=== PATIENT | female | born 1985 ===

== ENCOUNTER 2023-05-13 11:18 | Observation (INO) | payer MEDICAID ==
[2023-05-13] VITALS (38 sets, daily range): BP systolic 127–197; BP diastolic 66–108
[~2023-05-13] VITALS: Ht 165.1 cm; Wt 97.2 kg
[2023-05-13 11:36] LABS: BILIRUBIN,URINE NEGATIVE (NEGATIVE); CLARITY,URINE CLEAR; COLOR,URINE YELLOW; GLUCOSE, URINE (UA) NEGATIVE (NEGATIVE); KETONES,URINE NEGATIVE (NEGATIVE); LEUKOCYTE ESTERASE ,URINE 2+ (NEGATIVE); NITRITE,URINE NEGATIVE (NEGATIVE); PH,URINE 8.5 (5-9); PROTEIN,URINE NEGATIVE (NEGATIVE)
[2023-05-13 11:52] LABS: RBC,URINE RARE /HPF
[2023-05-13 11:53] LABS: BACTERIA,URINE MODERATE /HPF
[2023-05-13 12:23] LABS: AMPHETAMINE SCREEN, URINE NEGATIVE (NEGATIVE); BARBITURATE SCREEN URINE NEGATIVE (NEGATIVE); BENZODIAZEPINES SCREEN URINE NEGATIVE (NEGATIVE); CANNABINOID SCREEN, URINE POSITIVE (NEGATIVE); COCAINE SCREEN URINE NEGATIVE (NEGATIVE); METHADONE STAT NEGATIVE (NEGATIVE); OPIATE SCREEN URINE NEGATIVE (NEGATIVE); OXYCODONE STAT NEGATIVE (NEGATIVE); PROPOXYPHENE STAT NEGATIVE (NEGATIVE); TRICYCLIC ANTIDEPRESSANTS SCRE NEGATIVE (NEGATIVE)
[2023-05-13 12:53] LABS: BASOPHILS # (AUTO) 0.1 10^3/uL (0.0-0.1); BASOPHILS % (AUTO) 1 % (0-10); EOSINOPHILS # (AUTO) 0.2 10^3/uL (0.0-0.3); EOSINOPHILS % (AUTO) 2 % (0-10); HEMATOCRIT 33 % (35-52); HEMOGLOBIN 11.3 g/dL (11.5-16.0); LYMPHOCYTES % (AUTO) 22 % (12-44); MEAN CORPUSCULAR HEMOGLOBIN 32 pg (25-34); MEAN CORPUSCULAR HGB CONC 34 g/dL (32-36); MEAN CORPUSCULAR VOLUME 93 fL (80-99); MEAN PLATELET VOLUME 11.6 fL (9.0-12.2); MONOCYTES % (AUTO) 12 % (0-12); NEUTROPHILS # (AUTO) 5.5 10^3/uL (1.8-7.8); NEUTROPHILS % (AUTO) 62 % (42-75); PLATELET COUNT 221 10^3/uL (130-400); WHITE BLOOD COUNT 8.8 10^3/uL (4.3-11.0)
[2023-05-13 12:59] LABS: ALBUMIN 3.3 GM/DL (3.2-4.5); POTASSIUM 3.7 MMOL/L (3.6-5.0)
[2023-05-13 13:01] LABS: CALCIUM 8.5 MG/DL (8.5-10.1)
[2023-05-13 13:02] LABS: TOTAL PROTEIN 6.2 GM/DL (6.4-8.2)
[2023-05-13 13:04] LABS: BILIRUBIN,TOTAL 0.3 MG/DL (0.1-1.0)
[2023-05-13 13:05] LABS: CREATININE SERUM 0.52 MG/DL (0.60-1.30)
[2023-05-13 13:09] LABS: URIC ACID 4.3 MG/DL (2.6-7.2)
[2023-05-13] MEDS ORDERED: LABETALOL 200 MG (NORMODYNE) TAB PO NR (14:30)
[2023-05-13] MEDS: NS IV 1000 ML 1,000 ML IV SCH ×2 (15:03→15:59)
--- NOTE | 2023-05-13 17:38 | Diagnostic Imaging Report ---
HISTORY: Pre-term contractions, , 32 weeks 6 days. COMPARISON: None. TECHNIQUE: Transabdominal ultrasound of the gravid uterus. FINDINGS: There is a single live intrauterine gestation in cephalic presentation. The placenta is anterior with no evidence of previa visible. The heart rate measures 144 BPM. The amniotic fluid index measures 11.1 cm. The cervix is measured at 6 cm with no funneling or endocervical fluid seen. Anatomic survey is not performed at this time. IMPRESSION: 1. Single live intrauterine gestation with normal heart rate and amniotic fluid. Dictated by: Dictated on workstation # [id number]
[2023-05-13] MEDS ORDERED: hydrALAZINE (APESOLINE) 20 MG/ML VIAL IV PRN (18:15)
[2023-05-13] MEDS ORDERED: hydrALAZINE (APESOLINE) 20 MG/ML VIAL IV ONE ×2 (19:00→21:00)
[2023-05-13] MEDS ORDERED: LABETALOL 200 MG (NORMODYNE) TAB PO ONE ×2 (20:15→20:51)
[2023-05-13] MEDS ORDERED: ACETAMINOPHEN 500 MG TAB (TYLENOL) ONE (20:38)
[2023-05-13] MEDS ORDERED: hydrALAZINE (APESOLINE) 20 MG/ML VIAL ONE (20:44)
[2023-05-13] MEDS: ACETAMINOPHEN 500 MG TAB (TYLENOL) PO PRN (20:58)
[2023-05-14] VITALS (8 sets, daily range): BP systolic 134–155; BP diastolic 63–86
--- NOTE | 2023-05-14 05:31 | Short Stay Summary ---
History of Present Illness History of Present Illness Reason for visit/HPI at 31w6d presented to labor and delivery due to contractions. She has complicated by hypertension and a history of coronary artery stenting 6 years ago. She has a history of stillbirth as well. She was seen in [place] earlier in and recently moved to [place]. She has been seen by Cardiology, but did not attend her echo appointment. She has been fee ling the baby move a little less than prior. This morning she is very tired and is frustrated that she has just gotten to sleep so she is short with answers and history is partially obtained from chart and nurse report. Date of Admission 05/13/23 Date of Discharge 05/14/23 Time Seen by Provider: 05:42 Attending Physician Admitting Physician Admitting Physician: Attending Physician: Anderson Santa MD Consult Allergies and Home Medications Allergies Coded Allergies: No Known Drug Allergies (Unverified , 05/13/23) Patient Home Medication List Home Medication List Reviewed: Yes Labetalol HCl (Labetalol HCl) 100 Mg Tablet, 200 MG PO BID Prescribed by: ANDERSON SANTA on 05/14/23 1100 Discontinued Medications Labetalol HCl (Labetalol HCl) 100 Mg Tablet, 100 MG PO BID, (Reported) Discontinued Reason: Duplicate Order Entered as Reported by: ANDERSON SANTA on 05/14/23 1127 Last Action: Reviewed Past Zrbvjhk-Hrnhkk-Alkdji Hx Patient Social History Smoking Status: Current Everyday Smoker Alcohol Use?: No Reproductive System : Yes Expected Date of Delivery: Jul 09, 2023 Hx : 3 Hx Para: 2 Review of Systems ROS-Unable to Obtain: Unable to obtain due to patient frustration with questions Constitutional: other Physical Exam Vital Signs Vital Signs - First Documented 05/13/23 11:47 Temp 36.9 Pulse 68 Resp 18 B/P (MAP) 177/90 Pulse Ox 98 O2 Delivery Room Air Capillary Refill : Less Than 3 Seconds Height, Weight, BMI Height: '" Weight: lbs. oz. kg; 35.65 BMI Method: General Appearance: WD/WN Respiratory: Lungs Clear, Normal Breath Sounds Cardiovascular: Regular Rate, Rhythm, No Edema Gastrointestinal: Non Tender Extremity: No Pedal Edema Neurologic/Psychiatric: Alert, Other (irritable) Skin: Warm/Dry Short Stay Diagnosis Discharge Diagnosis-Short Stay Admission Diagnosis: contractions Third trimester Chronic hypertension complicating Coronary artery disease complicating Final Discharge Diagnosis: contractions with long cervix (6 cm on US) Third trimester Chronic hypertension complicating - increased labetalol to 200 mg BID Coronary artery disease complicating - echocardiogram ordered during stay Conclusion Labs Laboratory Tests 05/13/23 11:25: Urine Color YELLOW, Urine Clarity CLEAR, Urine pH 8.5, Urine Specific [place] 1.010L, Urine Protein 8, Urine Glucose (UA) NEGATIVE, Urine Ketones NEGATIVE, Urine Nitrite NEGATIVE, Urine Bilirubin NEGATIVE, Urine Urobilinogen 0.2, Urine Leukocyte Esterase 2+H, Urine RBC (Auto) NEGATIVE, Urine RBC RARE, Urine WBC 5- 10H, Urine Squamous Epithelial Cells 10-25H, Urine Crystals NONE, Urine Bacteria MODERATEH, Urine Casts NONE, Urine Mucus NEGATIVE, Urine Culture Indicated YES, Urine Creatinine 63, Urine Protein/Creatinine Ratio 0.13, Urine Opiates Screen NEGATIVE, Urine Oxycodone Screen NEGATIVE, Urine Methadone Screen NEGATIVE, Urine Propoxyphene Screen NEGATIVE, Urine Barbiturates Screen NEGATIVE, Ur Tricyclic Antidepressants Screen NEGATIVE, Urine Phencyclidine Screen NEGATIVE, Urine Amphetamines Screen NEGATIVE, Urine Methamphetamines Screen NEGATIVE, Urine Benzodiazepines Screen NEGATIVE, Urine Cocaine Screen NEGATIVE, Urine Cannabinoids Screen POSITIVEH 05/13/23 12:20: White Blood Count 8.8, Red Blood Count 3.59L, Hemoglobin 11.3L, Hematocrit 33L, Mean Corpuscular Volume 93, Mean Corpuscular Hemoglobin 32, Mean Corpuscular He moglobin Concent 34, Red Cell Distribution Width 13.7, Platelet Count 221, Mean Platelet Volume 11.6, Immature Granulocyte % (Auto) 1, Neutrophils (%) (Auto) 62, Lymphocytes (%) (Auto) 22, Monocytes (%) (Auto) 12, Eosinophils (%) (Auto) 2, Basophils (%) (Auto) 1, Neutrophils # (Auto) 5.5, Lymphocytes # (Auto) 2.0, Monocytes # (Auto) 1.0, Eosinophils # (Auto) 0.2, Basophils # (Auto) 0.1, Immature Granulocyte # (Auto) 0.1, Sodium Level 134L, Potassium Level 3.7, Chloride Level 109H, Carbon Dioxide Level 21, Anion Gap 4L, Blood Urea Nitrogen 4L, Creatinine 0.52L, Estimat Glomerular Filtration Rate 123, BUN/Creatinine Ratio 8, Glucose Level 88, Uric Acid 4.3, Calcium Level 8.5, Corrected Calcium 9.1, Total Bilirubin 0.3, Aspartate Amino Transf (AST/SGOT) 13, Alanine Aminotransferase (ALT/SGPT) 12, Alkaline Phosphatase 145H, Lactate Dehydrogenase 133, Total Protein 6.2L, Albumin 3.3 Conclusion/Plan Pt initially came in for contractions, those spaced out and were not bothersome to her by discharge, an ultrasound showed cervical length of 6 cm indicating low risk of labor and heart tone monitoring was reassuring. However, she did have persistent blood pressure above 161/105 in spite of reporting compliance with her home labetalol 100 mg BID. She was given another 100 mg PO labetalol without improvement, ultimately required 3 doses of IV h ydralazine (total of 25 mg) and then blood pressure did remain below 160/105 and she was discharged with labetalol 200 mg BID. She also had an echo done while inpatient as she had seen Cardiology but missed her echo appointment. Results were pending at d/c. Preeclampsia labs were negative during admission. Anticipate need for growth ultrasounds, measurements not done on inpatient US. Outpatient referral to [employer] school [employer] placed. NADERSON SANTA MD May 14, 2023 05:31
[2023-05-14] MEDS ORDERED: LABE100T9 PO ×3 (05:42→11:27)
[2023-05-14] MEDS ORDERED: LABETALOL 200 MG (NORMODYNE) TAB PO SCH (05:45)
[2023-05-14] MEDS: ACETAMINOPHEN 500 MG TAB (TYLENOL) PO PRN (09:56)
== END 2023-05-14 12:45 | disposition home or self-care (01) ==
LOC: WSo 11:18 → LDRP 11:18 → WSo 05-14 11:22 → LDRP 05-14 11:23
PROVIDERS: ADMIT Family Medicine; ATTEND Family Medicine
DX: O60.03 Preterm labor without delivery, third trimester (principal); O10.013 Pre-existing essential hypertension complicating pregnancy, third trimester; O99.333 Smoking (tobacco) complicating pregnancy, third trimester; O99.413 Diseases of the circulatory system complicating pregnancy, third trimester; I25.10 Atherosclerotic heart disease of native coronary artery without angina pectoris; F17.210 Nicotine dependence, cigarettes, uncomplicated; Z3A.31 31 weeks gestation of pregnancy; Z95.5 Presence of coronary angioplasty implant and graft; Z28.310 Unvaccinated for COVID-19
CPT/HCPCS: 36415; 76815; 80053; 80306; 81000; 82570; 83615; 84156; 84550; 85025; 87077; 87088; 93306; 96360; 96375; 96376; G0378